=== PATIENT | male | born 1960 | race Caucasian/White ===

== ENCOUNTER 2017-07-14 06:07 | Emergency (ER) | payer MEDICAID ==
[~2017-07-14] VITALS: Ht 177.8 cm; Wt 84.0 kg
[~2017-07-14 06:07] MED LIST: AMLO10TA4 PO; ASPI-515 PO; FAMO20TA7 PO; HYDR12.58 PO
[2017-07-14 06:58] LABS: BASOPHILS # (AUTO) 0.03 x10^3/uL (0-0.1); BASOPHILS % (AUTO) 1 % (0-1); EOSINOPHILS # (AUTO) 0.08 x10^3/uL (0-0.4); EOSINOPHILS % (AUTO) 1 % (1-7); LYMPHOCYTES # (AUTO) 1.01 x10^3/uL (1-3.4); LYMPHOCYTES % (AUTO) 16 % (22-44); MD NO; MEAN CORPUSCULAR HEMOGLOBIN 30.7 pg (27.5-34.5); MEAN CORPUSCULAR HGB CONC 33.7 g/dL (33.2-36.2); MEAN PLATELET VOLUME 7.9 fL (7.4-10.4); MONOCYTES # (AUTO) 0.61 x10^3/uL (0.2-0.8); MONOCYTES % (AUTO) 10 % (2-9); NEUTROPHILS # (AUTO) 4.51 x10^3/uL (1.8-6.8); NEUTROPHILS % (AUTO) 72 % (42-75); PLATELET COUNT 303 x10^3/uL (130-400); RED BLOOD COUNT 5.12 x10^6/uL (4.38-5.82); RED CELL DISTRIBUTION WIDTH 14.5 % (9.4-14.8)
[2017-07-14 07:08] LABS: ALBUMIN 3.8 g/dL (3.4-5.0); ANION GAP 7 mmol/L (5-15); CALCIUM 8.9 mg/dL (8.5-10.1); CHLORIDE 106 mmol/L (98-107)
[2017-07-14 07:09] LABS: CREATININE 1.62 mg/dL (0.7-1.3)
[2017-07-14] MEDS ORDERED: AMLODIPINE 5 MG TABLET PO ONE (07:30)
[2017-07-14] MEDS ORDERED: AMLODIPINE 5 MG TABLET ONE (07:31)
[2017-07-14 08:56] VITALS: BP 160/113
== END 2017-07-14 08:59 | disposition home or self-care (01) ==
LOC: ED 08:53
DX: I10 Essential (primary) hypertension (principal); F17.200 Nicotine dependence, unspecified, uncomplicated
CPT/HCPCS: 36415; 80048; 82040; 85025; 93005; 99285